=== PATIENT | female | born 1975 | race Native Hawaiian/Other Pacific Islander ===

== ENCOUNTER 2022-04-11 15:58 | Outpatient (CLI) | payer OTHER ==
[2022-04-11 16:54] LABS: PLATELET COUNT 389 K/uL (152-353)
[2022-04-11 17:04] LABS: POTASSIUM 3.7 mmol/L (3.6-5.2)
== END 2022-04-11 19:12 | disposition home or self-care (01) ==
LOC: LABW 15:58
PROVIDERS: ATTEND Nurse Practitioner Family
DX: R19.7 Diarrhea, unspecified (principal); E86.0 Dehydration
CPT/HCPCS: 36415; 80053; 81002; 82150; 83630; 83690; 85027; 87015; 87045; 87324; 87328; 87329; 87449; 87899

== ENCOUNTER 2022-04-16 16:12 | Outpatient (CLI) | payer OTHER | END 2022-04-16 19:24 | disposition home or self-care (01) | LOC: LABW 16:12 | PROVIDERS: ATTEND Nurse Practitioner Family | DX: A04.5 Campylobacter enteritis (principal) | CPT/HCPCS: 87015; 87045; 87899 ==